=== PATIENT | female | born 1960 | race Caucasian/White ===

== ENCOUNTER 2019-08-16 07:13 | Emergency (ER) | payer BC ==
--- OUTSIDE RECORDS SUMMARY | 2019-08-16 07:20 | XMS REPORT | Continuity of Care Document ---
:1960 External Reference #:[id number] Author Name Germain Bell MD Address [address] [place] [address] Problems Active Problems Provider Date Adult health examination Onset: 09/06/2018 Pain in right knee Onset: 10/19/2018 Asthma Onset: 06/29/2014 Social History Type Date Description Comments Sex Unknown Tobacco Use Start: Unknown Patient has never smoked Smoking Status Reviewed: 07/16/19 Patient has never smoked Allergies, Adverse Reactions, Alerts Active Allergies Reaction Severity Comments Date Bee Stings No Reaction Indicated 02/07/2019 Levofloxacin rash 02/07/2019 Medications Active Medications SIG Qnty Indications Ordering Date Provider Pulmicort 2 twice daily 360units Germain Bell MD 07/16/2019 Flexhaler Inhalation 180mcg/Act Aerosol Dymista 1 spray twice daily 69units Unknown 10/15/2018 per nostril Nasal 137-50mcg/Act Suspension Linzess Oral; Take 1 90caps Unknown 07/19/2018 290mcg Capsule Daily Capsules Epinephrine injection; use as 2units Germain Bell MD 11/09/2017 directed by 0.3mg/0.3ML prescriber or Solution package Auto-Inject instructions Singulair 1 daily oral 90tabs Karin 07/16/2017 10mg Karnow, DO Tablets Xopenex HFA Inhalation; Use 2 45units Unknown 07/16/2017 Inhalations By 45mcg/Act Aerosol Mouth Every 6 Hours Motegrity 1 tab by mouth Unknown 2mg every day Tablets History Medications Doxycycline Hyclate take 1 tablet by 14tabs Dottie Mcgowan MD 2019 - mouth twice 07/14/2019 100mg Tablets daily for 7 days Prednisone Oral; Take 6 40tabs Cinthya Leary, REFERRAL CLERK 02/24/2019 - 10mg Tablets tabs daily for 3 07/14/2019 days - then 4 tabs daily for 3 days - then 2 tabs daily for 3 days - then 1 tab daily for 3 days - then stop Medications Administered in Office Medication SIG Qnty Indications Ordering Provider Date DTaP Vaccine Younger Than 7 Unknown 10/24/2006 (Infanrix) Injection Immunizations CPT Code Status Date Vaccine Lot # [id number] Given 03/04/2019 Flu < 65 years 29561 Given 09/06/2018 Tdap - Boostrix/Adacel 61695 Given 03/02/2018 Flu < 65 years 41875 Given 11/09/2017 Shingrix - Shingles vaccine, Herpes Zoster 36880 Given 08/22/2017 Shingrix - Shingles vaccine, Herpes Zoster 12267 Given 08/22/2017 Prevnar 13 49462 Given 02/23/2017 Flu < 65 years 20781 Given 05/31/2015 Pneumovax - for >=2years - PPSV23 Vital Signs Date Vital Result Comment 07/16/2019 4:12pm BP Systolic 112 mmHg BP Diastolic 74 mmHg Height 64.50 inches 5'4.50" Weight 128.00 lb Heart Rate 56 /min Body Temperature 97.5 F O2 % BldC Oximetry 97 % BMI (Body Mass Index) 21.6 kg/m2 06/25/2019 3:23pm BP Systolic 122 mmHg BP Diastolic 78 mmHg Heart Rate 56 /min Body Temperature 97.9 F O2 % BldC Oximetry 95 % Results Description No Information Available Procedures Description No Information Available Medical Devices Description No Information Available Encounters Type Date Location Provider Dx Diagnosis Office Visit 07/16/2019 CF Ghulam Bell MD J45.20 Mild intermittent 4:00p asthma, uncomplicated R06.2 Wheezing H69.92 Unspecified Eustachian tube disorder, left ear Office Visit 06/25/2019 3:30p CF Ghulam Mcgowan J45.901 Unspecified asthma with (acute) exacerbation Assessments Date Code Description Provider 07/16/2019 Shanna45.20 Mild intermittent asthma, uncomplicated Germain Bell MD 07/16/2019 R06.2 Wheezing Germain Bell MD 07/16/2019 H69.92 Unspecified Eustachian tube disorder, left ear Germain Bell MD 06/25/2019 J45.901 Unspecified asthma with (acute) exacerbation Dottie Mcgowan MD Plan of Treatment Future Appointment(s):08/26/2019 8:45 am - Karin Ochoa, DO at [facility] Main05/2020 - Germain Bell MDJ45.20 Mild intermittent asthma, ldyhyslygzuacA94.2 DuzubgxgE59.92 Unspecified Eustachian tube disorder, left earAllNew Medication: Pulmicort Flexhaler 180 mcg/Act - 2 twice daily Inhalation Functional Status Description No Information Available Mental Status Description No Information Available Referrals Description No Information Available
--- OUTSIDE RECORDS SUMMARY | 2019-08-16 07:20 | XMS REPORT | Summary of Care ---
:1960 Author Organization [facility] Address [address] [place] [address] Care Team Providers Name Role Phone Don Karin Joce SMITH Primary Care Provider Reason for Visit Reason Comments Follow-up OPSP Bilateral foot hammer toes Encounter Details Date Type Department Care Team Description 07/01/2019 Office Visit Patricia Borja Daniel Bilateral foot pain (Primary Dx); [facility], [place] Hammer toes of both feet; [address] [place] [address] S/P foot surgery, right [place], [place] [address] [address] [place], [place] [phone] [address] [phone] Allergies Active Allergy Reactions Severity Noted Date Comments Bee Pollen Anaphylaxis High 04/21/2016 Levofloxacin In D5w Hives 04/21/2016 Adhesive Tape Other (See Comments) 10/02/2017 Blisters documented as of this encounter (statuses as of 07/01/2019) Medications Medication Sig Dispensed Refills Start Date End Date Status EPINEPHrine Inject 0.3 0 Active (EPIPEN 1:1000) mg into the 0.3 MG/0.3ML SOAJ muscle. linaclotide Take 290 mcg 0 Active (LINZESS) 290 MCG by mouth. capsule budesonide Inhale 1 mg 0 Active (PULMICORT) 1 into the MG/2ML nebulizer lungs. solution levalbuterol Inhale into 0 Active (XOPENEX) 0.63 the lungs. MG/3ML nebulizer solution montelukast 0 02/28/2016 Active (SINGULAIR) 10 MG tablet Motegrity 2 MG 0 02/14/2019 Active Oral Tablet Doxycycline 0 06/25/2019 Discontinued Hyclate 100 MG 0 (Therapy Oral Tablet completed) (VIBRA-TABS) documented as of this encounter (statuses as of 07/01/2019) Active Problems Problem Noted Date Contusion of right hand 10/02/2017 Numbness and tingling in right hand 10/02/2017 documented as of this encounter (statuses as of 07/01/2019) Social History Tobacco Use Types Packs/Day Years Used Date Never Smoker 0 Smokeless Tobacco: Never Used Alcohol Use Drinks/Week oz/Week Comments Yes Sex Assigned at Date Recorded Not on file Job Start Date Occupation Industry Not on file Not on file Not on file Travel History Travel Start Travel End No recent travel history available. documented as of this encounter Last Filed Vital Signs Not on filedocumented in this encounter Progress Notes Ponce Gomez, JANENE - 07/01/2019 3:00 PM EST Chief Complaint Patient presents with Follow-up OPSP Bilateral foot hammer toes HPI: Sandoval was seen on behalf of Dr. Tate for evaluation of their Bilateral feet. Patient is status post remote right great toe fusion and subsequent hardware removal. Hardware removal in 2016. Great toe fusion was in 2009. She has had progressive issues with her second and third toeson both feet. Worse on the left than on the right. States are starting to bend upwards. They are rubbing on shoes. They bother her when her when she runs and she wears certain shoes. She denies numbness, tingly. No new injuries. She has had no formal treatment. Past Medical History: Diagnosis Date Asthma IBS (irritable bowel syndrome) Family History Problem Relation Age of Onset Asthma Mother Thyroid disease Mother Heart disease Father Stroke Sister Cancer Paternal Grandfather Diabetes Paternal Grandfather Past Surgical History: Procedure Laterality Date FOOT SURGERY Right 06/12/2016 removal of hardware- [facility] FOOT SURGERY Right melanoma right big toe HAND SURGERY KNEE SURGERY Right 01/03/2019 vocal cord nodules Social History Socioeconomic History Marital status: Spouse name: Not on file Number of children: Not on file Years of education: Not on file Highest education level: Not on file Occupational History Not on file Social Needs Financial resource strain: Not on file Food insecurity: Worry: Not on file Inability: Not on file Transportation needs: Medical: Not on file Non-medical: Not on file Tobacco Use Smoking status: Never Smoker Smokeless tobacco: Never Used Substance and Sexual Activity Alcohol use: Yes Drug use: No Sexual activity: Not on file Lifestyle Physical activity: Days per week: Not on file Minutes per session: Not on file Stress: Not on file Relationships Social connections: Talks on phone: Not on file Gets together: Not on file Attends anglican service: Not on file Active member of club or organization: Not on file Attends meetings of clubs or organizations: Not on file Relationship status: Not on file Intimate partner violence: Fear of current or ex partner: Not on file Emotionally abused: Not on file Physically abused: Not on file Forced sexual activity: Not on file Other Topics Concern Not on file Social History Narrative Not on file Allergies Allergen Reactions Bee Pollen Anaphylaxis Levaquin [Levofloxacin In D5w] Hives Tape [Adhesive Tape] Other (See Comments) Blisters Current Outpatient Medications on File Prior to Visit Medication Sig Dispense Refill budesonide (PULMICORT) 1 MG/2ML nebulizer solution Inhale 1 mg into the lungs. EPINEPHrine (EPIPEN 1:1000) 0.3 MG/0.3ML SOAJ Inject 0.3 mg into the muscle. levalbuterol (XOPENEX) 0.63 MG/3ML nebulizer solution Inhale into the lungs. linaclotide (LINZESS) 290 MCG capsule Take 290 mcg by mouth. montelukast (SINGULAIR) 10 MG tablet Motegrity 2 MG Oral Tablet [DISCONTINUED] Doxycycline Hyclate 100 MG Oral Tablet (VIBRA-TABS) No current facility-administered medications on file prior to visit. Please see new patient information sheet for review of systems. These were reviewed today with Sandoval. PHYSICAL EXAM: There were no vitals taken for this visit. Patient is a well developed, well nourished 58-year-old in no acute distress, sitting comfortably onthe exam table today. The patient is alert and oriented, responds to questions appropriately, Walkswith a normal gait. The patient has proper mood and affect. Bilateral foot and ankle exam show hammertoe deformities of toes 2 and 3. Worse on the left than onthe right. The deformities are mostly correctable. There is no tenderness over the metatarsal heads plantarly. There is no movement at the first MTPJ on the right foot. The second toe is stiff to the IPJ. XRAYS: Multiple views of the bilateral feet were Reviewed in the office today. No acute findings. Hammertoes of toes 2 on both sides. Status post first MTPJ fusion with good bony fusion. No hardware. ASSESSMENT: symptomatic bilateral hammertoes PLAN: Treatment options were discussed. The natural history of the patient's problem was discussed with Sandoval. We discussed treatment options. She trialed the Mitchell splint. This was not very comfortable for her. She is given a toe sleeve to protect the skin so it does not rub on shoes. She was taught stretching. She she is to avoid walking barefoot. She understands that the only solution for this is surgical interventions. She is not sure that she wants to pursue that at this time. Sheunderstands should be strict nonweightbearing for 2 weeks and be in a boot for 6 weeks with a pin sticking out of her second toe. She did inquire about operating on both sides of the same time or possibly coordinating with a right knee arthroscopy that needs to be done. She will think about her options. Return to office when necessary. Patient will call the office for any increasing troubles. F/U Xrays: none "This document was dictated using [employer] software. A reasonable attempt at proof reading has been made to minimize errors. Please call our office if you have any questions." documented in this encounter Plan of Treatment Date Type Specialty Care Team Description 09/25/2019 Office Visit Orthopedic Surgery Julio Wayne MD [address] [address] [phone] Name Type Priority Associated Diagnoses Date/Time XR Foot 3 or More Views Imaging Routine Bilateral foot pain 07/01/2019 3: 26 PM EST Bilateral Name Type Priority Associated Diagnoses Order Schedule XR Foot 3 or More Views Imaging Routine Bilateral foot pain Expected: 07/01, Bilateral Expires: 07/01/2021 Health Maintenance Due Date Last Done Comments Hepatitis C Screening (B. 1960 [id number]) MMR Vaccines (1 of 1 - Standard 11/04/1960 series) Varicella Vaccines (1 of 2 - 11/04/1960 2-dose childhood series) DTaP,Tdap,and Td Vaccines (1 - 11/04/1966 Tdap) HIV Screening 11/04/1972 Cervical Cancer Screening 5 years 11/04/1980 Breast Cancer Screening 2 years 11/04/2009 Colon Cancer Screening 10 yrs 11/04/2009 Influenza Vaccine 03/04/2019 Pneumococcal Vaccine: 65+ Years (1 11/04/2024 of 2 - PCV13) HIB Vaccines Aged Out No longer eligible based on patient's age to complete this topic Hepatitis A Vaccines Aged Out No longer eligible based on patient's age to complete this topic Hepatitis B Vaccines Aged Out No longer eligible based on patient's age to complete this topic IPV Vaccines Aged Out No longer eligible based on patient's age to complete this topic Pneumococcal Vaccine: Pediatrics Aged Out No longer eligible based on (0 to 5 Years) and At-Risk patient's age to complete this Patients (6 to 64 Years) topic documented as of this encounter Results Not on filedocumented in this encounter Visit Diagnoses Diagnosis Bilateral foot pain - Primary Pain in limb Hammer toes of both feet S/P foot surgery, right documented in this encounter
--- OUTSIDE RECORDS SUMMARY | 2019-08-16 07:20 | XMS REPORT | Summary of Care ---
:1960 Author Organization [facility] Address [address] [place] [address] Care Team Providers Name Role Phone Barbaramichelle Karin Joce SMITH Primary Care Provider Reason for Referral External Surgery Case (Routine) Status Reason Specialty Diagnoses / Procedures Referred By Contact Referred To Contact Open Diagnoses S/P medial meniscectomy of right knee Right anterior knee pain Julio Wayne, Procedures Surgery Case Request, Outside Facilty ONLY [address] [place] [address] [address] [place] [address] Email: [email or web address] Reason for Visit Reason Comments Follow-up increased right knee pain Encounter Details Date Type Department Care Team Description 08/07/2019 Office Visit [facility] Tone Beck John S/P medial meniscectomy of right knee (Primary Dx); TRINITY Griggs MD Right anterior knee pain [address] [facility] [address] [place], [place] [address] [address] [facility] [phone] [place] [address] [phone] Allergies Active Allergy Reactions Severity Noted Date Comments Bee Pollen Anaphylaxis High 04/21/2016 Levofloxacin In D5w Hives 04/21/2016 Adhesive Tape Other (See Comments) 10/02/2017 Blisters documented as of this encounter (statuses as of 08/08/2019) Medications Medication Sig Dispensed Refills Start Date End Date Status EPINEPHrine (EPIPEN Inject 0.3 mg 0 Active 1:1000) 0.3 MG/0.3ML into the muscle. SOAJ linaclotide (LINZESS) Take 290 mcg by 0 Active 290 MCG capsule mouth. budesonide (PULMICORT) Inhale 1 mg into 0 Active 1 MG/2ML nebulizer the lungs. solution levalbuterol (XOPENEX) Inhale into the 0 Active 0.63 MG/3ML nebulizer lungs. solution montelukast (SINGULAIR) 0 02/28/2016 Active 10 MG tablet Motegrity 2 MG Oral 0 02/14/2019 Active Tablet documented as of this encounter (statuses as of 08/08/2019) Active Problems Problem Noted Date Contusion of right hand 10/02/2017 Numbness and tingling in right hand 10/02/2017 documented as of this encounter (statuses as of 08/08/2019) Social History Tobacco Use Types Packs/Day Years [...] Signs Not on filedocumented in this encounter Patient Instructions Patient InstructionsSt Radha Figueredo LPN - 08/07/2019 4:00 PM ESTThe patient is instructed to call the office with any question/concerns or if symptoms worsen. documented in this encounter Progress Notes Max Talbot - 08/07/2019 4:00 PM EST Max Talbot scribing the following service on behalf of Dr. Wayne. Chief Complaint Patient presents with Follow-up increased right knee pain Sandoval Abraham comes to the office for increased right knee pain. Her pain is medial and posterior. She continues to have increased pain at work. No new injury. no improvement with PT or steroid injection. No consitutional or neurological complaints. Right knee: well-healed incisions. No effusion. Medial tenderness. Good motion. Stable. Patella tracks straight. Calf is soft and nontender. Neurovascularly intact. A 58 y.o. female s/p right knee arthroscopy and partial medial menisectomy, doing well. Inherent/material risks, benefits, limitations and the treatment alternatives were discussed at length. All questions were answered. She would like to proceed with repeat right knee arthroscopy and meniscal correction. Sandoval will return to her primary care team for preoperative clearance. She will speak to my receptionist secretary to schedule her surgery. I, Julio Wayne MD, have examined the patient and discussed relevant clinical findings. I agree with the above stated documentation. For details, please see above. CC: Karin Ochoa, DO Orders Placed This Encounter Surgery Case Request, Outside Facilty ONLY documented in this encounter Plan of Treatment Health Maintenance Due Date Last Done Comments Hepatitis C Screening (B. 1960 [id number]) MMR Vaccines (1 of 1 - Standard [...] Years) topic documented as of this encounter Procedures Procedure Name Priority Date/Time Associated Diagnosis Comments SURGERY CASE REQUEST Routine 08/07/2019 4:41 PM S/P medial meniscectomy OUTSIDE FACILITY ONLY EST of right knee Right anterior knee pain documented in this encounter Results Not on filedocumented in this encounter Visit Diagnoses Diagnosis S/P medial meniscectomy of right knee - Primary Right anterior knee pain Pain in joint, lower leg documented in this encounter
--- OUTSIDE RECORDS SUMMARY | 2019-08-16 07:20 | XMS REPORT | Continuity of Care Document ---
:1960 External Reference #:[id number] Author Name Dottie Mcgowan MD Address [address] [place] [address] Problems Active Problems Provider Date Pain in right knee Onset: 10/19/2018 Asthma Onset: 06/29/2014 Inactive Problems Tear of medial meniscus of knee Onset: 01/01/2019 Inactive: 01/01/2019 Knee pain Onset: 01/01/2019 Inactive: 01/01/2019 Pre-surgery evaluation Onset: 01/01/2019 Inactive: 01/01/2019 Social History Type Date Description Comments Sex Unknown Tobacco Use Start: Unknown Patient has never smoked Smoking Status Reviewed: 06/25/19 Patient has never smoked Allergies, Adverse Reactions, Alerts Active Allergies Reaction Severity Comments Date Bee Stings No Reaction Indicated 02/07/2019 Levofloxacin rash 02/07/2019 Medications Active Medications SIG Qnty Indications Ordering Date Provider Doxycycline Hyclate take 1 tablet by 14tabs Dottie Mcgowan, 06/25/2019 mouth twice daily 100mg Tablets for 7 days Prednisone Oral; Take 6 tabs 40tabs Cinthya Aittama, 02/24/2019 10mg daily for 3 days - MANAGER ASSEMBLY Tablets then 4 tabs daily for 3 days - then 2 tabs daily for 3 days - then 1 tab daily for 3 days - then stop Dymista 1 spray twice daily 69units Unknown 10/15/2018 per nostril Nasal 137-50mcg/Act Suspension Polyethylene Glycol Oral; Fill The Cap 1530units Unknown 09/03/2018 3350 To Line, Mix And 3350NF Powder Drink Once Daily Linzess Oral; Take 1 90caps Unknown 07/19/2018 290mcg Capsule Daily Capsules Epinephrine injection; use as 2units Germain Bell MD 11/09/2017 directed by 0.3mg/0.3ML prescriber or Solution package Auto-Inject instructions Singulair 1 daily oral 90tabs Karin 07/16/2017 10mg Karnow, DO Tablets Linzess 1 Daily Oral; Id # 90caps Unknown 07/16/2017 290mcg [id number] Capsules Xopenex HFA Inhalation; Use 2 45units Unknown 07/16/2017 Inhalations By 45mcg/Act Aerosol Mouth Every 6 Hours Pulmicort Flexhaler 2 twice daily 360units Unknown 07/07/2016 Inhalation 180mcg/Act Aerosol Motegrity 1 tab by mouth Unknown 2mg every day Tablets Medications Administered in Office Medication SIG Qnty Indications Ordering Provider Date DTaP Vaccine Younger Than 7 Unknown 10/24/2006 (Infanrix) Injection Immunizations CPT Code Status Date Vaccine Lot # [id number] Given 09/06/2018 Tdap - Boostrix/Adacel 95623 Given 03/02/2018 Flu < 65 years 17242 Given 11/09/2017 Shingrix - Shingles vaccine, Herpes Zoster 22255 Given 08/22/2017 Shingrix - Shingles vaccine, Herpes Zoster 36807 Given 08/22/2017 Prevnar 13 86189 Given 02/23/2017 Flu < 65 years 97076 Given 05/31/2015 Pneumovax - for >=2years - PPSV23 64177 Given 05/31/2015 Flu < 65 years 47539 Given 03/07/2014 Flu < 65 years 75597 Given 04/05/2013 Flu < 65 years 72213 Given 04/13/2012 Flu < 65 years Vital Signs Date Vital Result Comment 06/25/2019 3:23pm BP Systolic 122 mmHg BP Diastolic 78 mmHg Heart Rate 56 /min Body Temperature 97.9 F O2 % BldC Oximetry 95 % 01/01/2019 2:39pm BP Systolic 114 mmHg Heart Rate 57 /min Body Temperature 97.6 F O2 % BldC Oximetry 98 % Results Test Acquired Date Facility Test Result H/L Range Note Lymph% 01/01/2019 N2N/CCD Import Lymph% 30.4 % 20 - 45 % MCH 01/01/2019 N2N/CCD Import [facility] 30 pg 27-31 pg MCHC 01/01/2019 N2N/CCD Import MCHC 34 g/dL 31-36 g/dL MCV 01/01/2019 N2N/CCD Import MCV 89 fL 80-97 fL Johnston# 01/01/2019 N2N/CCD Import Johnston# 0.3 0-0.8 10 10_3/ul 3/ul Johnston% 01/01/2019 N2N/CCD Import Johnston% 7.2 % 0 - 10 % MPV 01/01/2019 N2N/CCD Import MPV 8.4 fL 7.4-10.4 fL Neut# 01/01/2019 N2N/CCD Import Neut# 2.6 1.5-7.7 10_3/ul 10 3/ul Neut% 01/01/2019 N2N/CCD Import Neut% 57.4 % 45 - 70 % NRBC# 01/01/2019 N2N/CCD Import NRBC# 0.0 10_3/ul NRBC% 01/01/2019 N2N/CCD Import NRBC% 0.0 _ Platelets 01/01/2019 N2N/CCD Import Platelets 239 150-450 10_3/uL 10 3/uL Potassium 01/01/2019 N2N/CCD Import Potassium 3.9 mmol/L 3.5-5.0 mmol/L RBC 01/01/2019 N2N/CCD Import RBC 4.24 3.70-4.87 10_6_/uL 10 6 /uL RDW 01/01/2019 N2N/CCD Import RDW 13 % 10-15 % Sodium 01/01/2019 N2N/CCD Import Sodium 140 mmol/L 135-145 mmol/L WBC 01/01/2019 N2N/CCD Import WBC 4.5 3.5-10.8 10_3/uL 10 3/uL Anion Gap 01/01/2019 N2N/CCD Import Anion Gap 6 mmol/L 2-11 mmol/L Baso# 01/01/2019 N2N/CCD Import Baso# 0.0 0-0.2 10 10_3/ul 3/ul Baso% 01/01/2019 N2N/CCD Import Baso% 0.8 % 0 - 2 % BUN 01/01/2019 N2N/CCD Import BUN 25 mg/dL High 6-24 mg/dL BUN/Creat Ratio 01/01/2019 N2N/CCD Import BUN/Creat Ratio 30.9 _ High 8- 20 Calcium 01/01/2019 N2N/CCD Import Calcium 9.0 mg/dL 8.6-10.3 mg/dL Chloride 01/01/2019 N2N/CCD Import Chloride 105 mmol/L 101-111 mmol/L Co2 01/01/2019 N2N/CCD Import Co2 29 mmol/L 22-32 mmol/L Creatinine 01/01/2019 N2N/CCD Import Creatinine 0.81 mg/dL 0.51-0.95 mg/dL Eosin# 01/01/2019 N2N/CCD Import Eosin# 0.2 0-0.6 10 10_3/ul 3/ul Eosin% 01/01/2019 N2N/CCD Import Eosin% 4.2 % 0 - 5 % GFR Afr Amer 01/01/2019 N2N/CCD Import GFR Afr Amer 87.6 _ >60 GFR Non Afr 01/01/2019 N2N/CCD Import GFR Non Afr 72.4 _ >60 Amer Amer Glucose 01/01/2019 N2N/CCD Import Glucose 70 mg/dL 70-100 mg/dL Hematocrit 01/01/2019 N2N/CCD Import Hematocrit 38 % 35-47 % Hemoglobin 01/01/2019 N2N/CCD Import Hemoglobin 12.6 g/dL 12.0-16.0 g/dL Lymph# 01/01/2019 N2N/CCD Import Lymph# 1.4 1.0-4.8 10_3/ul 10 3/ul Procedures Description No Information Available Medical Devices Description No Information Available Encounters Type Date Location Provider Dx Diagnosis Office Visit 06/25/2019 [facility] Dottie Mcgowan MD J45.901 Unspecified asthma 3:30p with (acute) exacerbation Assessments Date Code Description Provider 06/25/2019 J45.901 Unspecified asthma with (acute) exacerbation Dottie Mcgowan MD Plan of Treatment Future Appointment(s):08/26/2019 8:45 am - Karin Ochoa DO at [facility] Main - Dottie Mcgowan MDJ45.901 Unspecified asthma with (acute) exacerbationAllNew Medication:Doxycycline Hyclate 100 mg - take 1 tablet by mouth twice daily for 7 days Functional Status Description No Information Available Mental Status Description No Information Available Referrals Description No Information Available
--- OUTSIDE RECORDS SUMMARY | 2019-08-16 07:20 | XMS REPORT | Summary of Care ---
:1960 Author Organization [facility] Address [address] [place] [address] Care Team Providers Name Role Phone Karin Ochoa Joce SMITH Primary Care Provider Reason for Visit Reason Comments Results MRI right knee Encounter Details Date Type Department Care Team Description 06/26/2019 Office Visit [facility] MD [facility] (Primary [address] [place], [place] [address] [address] [place] [address] [phone] Allergies Active Allergy Reactions Severity Noted Date Comments Bee Pollen Anaphylaxis High 04/21/2016 Levofloxacin In D5w Hives 04/21/2016 Adhesive Tape Other (See Comments) 10/02/2017 Blisters documented as of this encounter (statuses as of 06/27/2019) Medications Medication Sig Dispensed Refills Start Date [...] 2 MG Oral 0 02/14/2019 Active Tablet Doxycycline Hyclate 100 0 06/25/2019 Active MG Oral Tablet (VIBRA-TABS) documented as of this encounter (statuses as of 06/27/2019) Active Problems Problem Noted Date Contusion of right hand 10/02/2017 Numbness and tingling in right hand 10/02/2017 documented as of this encounter (statuses as of 06/27/2019) Social History Tobacco Use Types Packs/Day Years [...] on filedocumented in this encounter Progress Notes Julio Wayne MD - 06/26/2019 1:45 PM EST Chief Complaint Patient presents with Results MRI right knee HPI: Sandoval Abraham comes to the office. She is a very pleasant 58-year-old lady who complains ofongoing right knee pain status post arthroscopy and debridement in January 2019. She initially did well and then shortly thereafter she noted the onset of medial pain popping catching and swelling. This is failed to improve with a pretty extensive conservative program postoperatively. She is here post MRI. PMH, PSH, Current Medications, Allergies/Reactions, Family History, Social History, and Review of Systems are documented in the electronic medical record and are reviewed. Vitals: There were no vitals taken for this visit. alert oriented x3 in no acute distress. Walks with good gait. Exam: Right knee: Skin is intact. There is well-healed incisions. Joint line tenderness medial more thanlateral. There is some mild crepitus with range of motion. Mild effusion. Good motion. Stable. Pain on [place] without pop. Calf is soft and nontender. Neurovascular intact. Imaging: MRI of the right knee: Images are reviewed. Pace that Impression: Right knee pain post arthroscopy and debridement. Possible further tearing of the medial meniscus given the historical presentation of her symptoms postoperatively in a delayed fashion. Plan: Options were discussed at length. At this point will proceed on with conservative program. I will see her back in 3 months. No orders of the defined types were placed in this encounter. CC: Karin Ochoa, This document was dictated using [employer] software. A reasonable attempt at proof reading has been made to minimize errors. Please call our office if you have any questions. documented in this encounter Plan of Treatment Date Type Specialty Care Team Description 07/01/2019 Office Visit [facility] [address] [place] [address] 09/25/2019 Office Visit Orthopedic Surgery Julio Wayne MD [address] [place] [address] Health Maintenance Due Date Last Done Comments Hepatitis C Screening (B. 1960 [id number]) MMR Vaccines (1 of 1 - Standard [...] in this encounter Visit Diagnoses Diagnosis S/P right knee arthroscopy - Primary Other postprocedural status documented in this encounter
[2019-08-16 07:33] VITALS: BP 112/78
--- NOTE | 2019-08-16 08:24 | UC ---
Upper Extremity HPI - HPI Summary HPI Summary: 58yo EF p/w right index finger injury while applying tape and snapped sideways, denies bony tenderness bur ROM restricted due to pain - History of Current Complaint Chief Complaint: UCUpperExtremity Stated Complaint: HAND INJURY Time Seen by Provider: 08/16/19 07:28 Hx Obtained From: Patient Hx Last Menstrual Period: 2 yrs Onset/Duration: Sudden Onset Severity Initially: Moderate Severity Currently: Moderate Pain Intensity: 3 Character: Sharp, Stiffness Aggravating Factor(s): Movement, Lifting, Flexion, Extension Alleviating Factor(s): Nothing Associated Signs And Symptoms: Positive: Negative - Allergies/Home Medications Allergies/Adverse Reactions: Allergies Allergy/AdvReac Type Severity Reaction Status Date / Time levofloxacin [From Levaquin] Allergy Hives Verified 08/16/19 07:29 rofecoxib [From Vioxx] Allergy Vomiting Verified 08/16/19 07:29 bee stings Allergy Anaphylatic Uncoded 08/16/19 07:29 Shock Home Medications: Home Medications Budesonide Flexhaler 90 (NF) [Pulmicort Flexhaler 90 mcg/act (NF)] 1 puff INH DAILY PRN 01/27/14 [History Confirmed 08/16/19] Epi Pen 0.3 ml INJ SEE INSTRUCTIONS PRN 01/27/14 [History Confirmed 08/16/19] Fluticasone NASAL SPRAY 50MCG* [Fluticasone NASAL SPRAY*] 2 spray BOTH NARES DAILY 01/27/14 [History Confirmed 08/16/19] Levalbuterol HFA INHALER* [Xopenex Hfa Inhaler*] 2 inh INH QAM PRN 01/27/14 [ History Confirmed 08/16/19] Montelukast Sodium TAB* [Singulair TAB*] 10 mg PO BEDTIME 01/27/14 [History Confirmed 08/18/15] Ferrous Bis-Glycinate Chelate [Ferrous Bisglycinate Rupa] 25 mg PO QPM 08/20/15 [History Confirmed 08/16/19] Linaclotide (NF) [Linzess (NF)] 290 mcg PO QAM 08/20/15 [History Confirmed 08/15] Multivitamin [Multivitamins] 1 cap PO DAILY 08/20/15 [History Confirmed 08/16/19 ] Tylenol P M 2 tab PO BEDTIME PRN 08/20/15 [History Confirmed 08/16/19] Prucalopride Succinate [Motegrity] 2 mg PO BEDTIME 08/16/19 [History Confirmed 08/16/19] PMH/Surg Hx/FS Hx/Imm Hx Previously Healthy: Yes - Surgical History Surgical History: Yes Surgery Procedure, Year, and Place: right foot - Family History Known Family History: Positive: Non-Contributory - Social History Alcohol Use: Occasionally Substance Use Type: None Smoking Status (MU): Never Smoked Tobacco Review of Systems All Other Systems Reviewed And Are Negative: Yes Constitutional: Positive: Negative Eyes: Positive: Negative ENT: Positive: Negative Respiratory: Positive: Negative Cardiovascular: Positive: Negative Gastrointestinal: Positive: Negative Genitourinary: Positive: Negative Motor: Positive: Negative Neurovascular: Positive: Negative Musculoskeletal: Positive: Other: - right index finger pain Neurological/Mental Status: Positive: Negative Physical Exam - Summary Physical Exam Summary: Vital Signs Reviewed: Yes Eye Exam: Normal Eyes: Positive: Conjunctiva Clear ENT: Positive: Normal ENT inspection Neck: Positive: Supple Respiratory Exam: Normal Respiratory: Positive: Lungs clear, Normal breath sounds. Negative: Crackles, Rhonchi, Stridor, Wheezing Cardiovascular Exam: Normal, RRR, S1, S2 Abdomen: NT/ND Musculoskeletal Exam: TTP over right 2nd MCJ due to ROM intact but limited due to pain Neurological Exam: Normal Psychological Exam: Normal Skin Exam: Normal Triage Information Reviewed: Yes Vital Signs: Initial Vital Signs Temp 36.8 C 08/16/19 07:24 Pulse 56 08/16/19 07:24 Resp 16 08/16/19 07:24 BP 112/78 08/16/19 07:24 Pulse Ox 96 08/16/19 07:24 Upper Extremity Course/Dx - Course Course Of Treatment: XR of hand/finger katia for fx - Differential Dx/Diagnosis Provider Diagnosis: Sprain of index finger Discharge ED - Sign-Out/Discharge Documenting (check all that apply): Patient Departure All imaging exams completed and their final reports reviewed: Yes - Discharge Plan Condition: Stable Disposition: HOME Patient Education Materials: Finger Sprain (ED) Referrals: Karin Ochoa DO [Primary Care Provider] - - Billing Disposition and Condition Condition: STABLE Disposition: Home
== END 2019-08-16 08:20 | disposition home or self-care (01) ==
LOC: UCEAST 07:13
DX: S63.610A Unspecified sprain of right index finger, initial encounter (principal); Z91.030 Bee allergy status; Z88.1 Allergy status to other antibiotic agents; X58.XXXA Exposure to other specified factors, initial encounter; Y92.9 Unspecified place or not applicable
CPT/HCPCS: 99212; G0463